=== PATIENT | male | born 1985 | race Caucasian/White ===

== ENCOUNTER 2017-04-13 20:18 | Emergency (ER) | payer OTHER ==
[2017-04-13 20:28] VITALS: BP 136/84
[2017-04-13] MEDS ORDERED: LIDOCAINE 2% 10 ML MDV SUBQ STA (20:45)
[2017-04-13] MEDS ORDERED: LIDOCAINE 2% 10 ML MDV ONE (20:49)
--- NOTE | 2017-04-13 21:01 | ED Physician Documentation ---
PD HPI HEENT FB - Chief complaint Chief Complaint: Heent - History obtained from History obtained from: Patient - History of Present Illness Timing - onset: Today Pain level max: 5 Pain level now: 5 Location: Left ear Associated symptoms: No: Fever, Congestion Recently seen: Not recently seen - Additional information Additional information: Patient states he was removing his hearing aid tonight when a piece of the hearing aid broke off in the left ear. Unable to remove at home Review of Systems Constitutional: denies: Fever GI: denies: Vomiting PD PAST MEDICAL HISTORY - Past Medical History Past Medical History: Yes Other Past Medical History: TBI - Past Surgical History Past Surgical History: No - Allergies Allergies/Adverse Reactions: Allergies Allergy/AdvReac Type Severity Reaction Status Date / Time No Known Drug Allergies Allergy Verified 04/13/17 20:30 - Social History Does the pt smoke?: Yes Smoking Status: Current every day smoker Does the pt drink ETOH?: No Does the pt have substance abuse?: No - Immunizations Immunizations are current?: Yes - POLST Patient has POLST: No PD ED PE NORMAL - Vitals Vital signs reviewed: Yes - General General: Alert and oriented X 3, No acute distress - HEENT HEENT: Ears normal (Black plastic foreign body visible in the canal of the left ear.) - Derm Derm: Warm and dry - Neuro Neuro: Alert and oriented X 3 Results - Vitals Vitals: Vital Signs - 24 hr 04/13/17 20:26 Temperature 36.3 C L Heart Rate 87 Respiratory 16 Rate Blood Pressure 136/84 H O2 Saturation 99 Oxygen O2 Source Room air Procedures - General procedure General procedure: Foreign body removal from the left ear - 2% lidocaine without epinephrine was instilled to anesthetize the ear canal and eardrum. After this an 18-gauge needle with the tip bent was used to remove the plastic material. Upon repeated inspection of the tympanic membrane, there is mild erythema, but no active bleeding. No infection. No perforation. PD MEDICAL DECISION MAKING - ED course Complexity details: considered differential, d/w patient ED course: Patient with a foreign body to the left ear canal. This was removed in the emergency department. Tolerated well. Patient counseled regarding signs and symptoms for which I believe and urgent re-evaluation would be necessary. Patient with good understanding of and agreement to plan and is comfortable going home at this time This document was made in part using voice recognition software. While efforts are made to proofread this document, sound alike and grammatical errors may occur. Departure - Departure Disposition: 01 Home, Self Care Clinical Impression: Foreign body Condition: Good Instructions: ED Foreign Body Ear Canal Follow-Up: MINNIE VELASQUEZ [Primary Care Provider] - Within 1 week Comments: Return if you worsen. Follow up with your doctor for a new hearing aid. Discharge Date/Time: 04/13/17 21:08
== END 2017-04-13 21:08 | disposition home or self-care (01) ==
LOC: ED 20:18
DX: T16.2XXA Foreign body in left ear, initial encounter (principal); X58.XXXA Exposure to other specified factors, initial encounter; Z97.4 Presence of external hearing-aid; Z87.820 Personal history of traumatic brain injury; F17.200 Nicotine dependence, unspecified, uncomplicated
CPT/HCPCS: 69200; 99282; 99283